=== PATIENT | female | born 1980 | race Caucasian/White ===

== ENCOUNTER 2019-05-30 18:41 | Emergency (ER) | payer MEDICAID, OTHER ==
[2019-05-30 20:57] LABS: URINE BLOOD (Dip) POC Negative (NEGATIVE); URINE GLUCOSE (Dip) POC Negative (NEGATIVE); URINE KETONES (Dip) POC Trace (NEGATIVE); URINE LEUKOCYTE EST (Dip) POC Negative (NEGATIVE); URINE NITRITE (Dip) POC Negative (NEGATIVE); URINE TOTAL PROTEIN POC Trace (NEGATIVE)
[2019-05-30] MEDS: HYDROCODONE/APAP (10/325) TAB PO (21:08)
[2019-05-30] MEDS: ONDANSETRON (ODT) 4 MG TAB ODT (21:08)
[2019-05-30] MEDS: KETOROLAC 30 MG INJ IM (21:08)
[2019-06-10 18:58] LABS: URINE BLOOD (Dip) POC Negative (NEGATIVE); URINE GLUCOSE (Dip) POC Negative (NEGATIVE); URINE KETONES (Dip) POC Trace (NEGATIVE); URINE LEUKOCYTE EST (Dip) POC Negative (NEGATIVE); URINE NITRITE (Dip) POC Negative (NEGATIVE); URINE TOTAL PROTEIN POC Trace (NEGATIVE)
== END 2019-05-30 21:30 | disposition home or self-care (01) ==
LOC: FTE 18:41
DX: M54.42 Lumbago with sciatica, left side (principal)
CPT/HCPCS: 81003; 81025; 96372; 99284-25